=== PATIENT | male | born 1950 ===

== ENCOUNTER 2021-08-18 01:16 | Emergency (ER) | payer MEDICARE, BC ==
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
== END 2021-08-18 01:37 | disposition home or self-care (01) ==
LOC: LB.ED 01:16
DX: S01.01XA Laceration without foreign body of scalp, initial encounter (principal); W18.09XA Striking against other object with subsequent fall, initial encounter
CPT/HCPCS: 99284; A0425; A0429

== ENCOUNTER 2022-08-01 10:56 | Day surgery (SDC) | payer MEDICARE, BC ==
[~2022-08-01 10:56] MED LIST: Metoclopramide 10 MG/2 ML SDV IV PRN; Metoclopramide 10 MG/2 ML SDV IVPUSH PRN; Sodium Chloride 0.9% 1,000 ML IV SCH
== END 2022-08-01 14:12 | disposition home or self-care (01) ==
LOC: LB.SDS 10:56
PROVIDERS: ATTEND Surgery
DX: Z12.11 Encounter for screening for malignant neoplasm of colon (principal); K57.30 Diverticulosis of large intestine without perforation or abscess without bleeding; J45.909 Unspecified asthma, uncomplicated; E78.00 Pure hypercholesterolemia, unspecified
CPT/HCPCS: J2704; J7030